=== PATIENT | female | born 1975 | race Caucasian/White ===

== ENCOUNTER 2018-03-05 00:21 | Emergency (ER) | payer OTHER ==
[~2018-03-05] VITALS: Ht 170.2 cm; Wt 63.5 kg
== END 2018-03-05 02:01 | disposition home or self-care (01) ==
LOC: ER 00:21
DX: R00.2 Palpitations (principal); T40.7X5A Adverse effect of cannabis (derivatives), initial encounter; Y92.098 Other place in other non-institutional residence as the place of occurrence of the external cause